=== PATIENT | female | born 1965 | race Two or more races ===

== ENCOUNTER 2019-04-04 16:39 | Emergency (ER) | payer OTHER ==
[~2019-04-04] VITALS: Ht 157.5 cm; Wt 54.4 kg
[2019-04-04] MEDS ORDERED: METOPROLOL TART50 M1 ORAL (17:08)
[2019-04-04 17:40] LABS: EOSINOPHILS % (AUTO) 0.7 % (0.0-3.0); HEMATOCRIT 40.9 % (37.0-47.0); HEMOGLOBIN 14.9 G/DL (12.0-16.0); LYMPHOCYTES % (AUTO) 25.8 % (20.0-45.0); MEAN CORPUSCULAR VOLUME 85 FL (80-99); MONOCYTES % (AUTO) 6.5 % (1.0-10.0); PLATELET COUNT 182 K/UL (150-450); RED BLOOD COUNT 4.82 M/UL (4.20-5.40); WHITE BLOOD COUNT 4.7 K/UL (4.8-10.8)
[2019-04-04 17:44] LABS: ANION GAP 7 mmol/L (5-15); BLOOD UREA NITROGEN 15 mg/dL (7-18); CARBON DIOXIDE 27 MMOL/L (21-32); CHLORIDE 108 MMOL/L (98-107); CREATININE 0.7 MG/DL (0.55-1.30); POTASSIUM 3.3 MMOL/L (3.5-5.1); SODIUM 142 MMOL/L (136-145)
[2019-04-04 17:48] VITALS: BP 129/61
[2019-04-04 17:49] LABS: ALANINE AMINOTRANSFERASE 22 U/L (12-78); ALKALINE PHOSPHATASE 83 U/L (46-116); ASPARTATE AMINO TRANSFERASE 20 U/L (15-37); BILIRUBIN,TOTAL 0.3 MG/DL (0.2-1.0)
--- NOTE | 2019-04-04 19:16 | Emergency Room Report ---
History of Present Illness General Chief Complaint: Chest Pain Source: Patient Present Illness HPI 53-year-old female who presents with chest pain. Patient symptoms started yesterday morning. Initial pain started lasted 1 to 2 hours. She had 4-6 episodes afterwards throughout yesterday afternoon evening and this morning. Patient states she has no pain at this time. She denies any past medical history other than hypertension which she takes medication for. She is non- smoker. She has no other known family risk factors. Allergies: Coded Allergies: PENICILLINS (Verified Allergy, Unknown, 04/04/19) Patient History Past Medical History: HTN Past Surgical History: none Now: No Nursing Documentation-PM Past Medical History: No History, Except For Hx Hypertension: Yes Review of Systems Constitutional: Denies: chills, fever Respiratory: Denies: cough, shortness of breath Cardiovascular: Reports: chest pain; Denies: palpitations Gastrointestinal: Denies: diarrhea, vomiting Genitourinary: Denies: hematuria, pain Musculoskeletal: Denies: joint swelling Skin: Denies: rash, lesions Neurological: Denies: headache, dizziness Physical Exam Vital Signs Date Time Temp Pulse Resp B/P (MAP) Pulse Ox O2 Delivery O2 Flow Rate FiO2 04/04/19 16:45 98.2 98 15 127/59 (81) 98 Room Air Sp02 EP Interpretation: reviewed General Appearance: well appearing, no apparent distress, non-toxic Head: normocephalic, atraumatic Eyes: bilateral eye normal inspection ENT: hearing grossly normal, EOM grossly intact, moist mucus membranes Neck: supple Respiratory: lungs clear, normal breath sounds, no respiratory distress, speaking full sentences Cardiovascular #1: regular rate, rhythm, normal capillary refill Cardiovascular #2: 2+ radial (R), 2+ radial (L) Gastrointestinal: soft, non-distended Rectal: deferred Musculoskeletal: moves extm spontaneously, no lower extremity edema Neurologic: grossly normal Psychiatric: mood/affect normal Skin: warm/dry, normal turgor Medical Decision Making Diagnostic Impression: Primary Impression: Chest pain ER Course 53-year-old female with chest pain. Found to have ST depressions on initial EKG. Troponin noted to be negative. Repeat EKG within normal limits. Given patient' s age and risk factors and EKG changes will admit for chest pain work-up. Laboratory Tests Test 04/04/19 17:30 White Blood Count 4.7 K/UL (4.8-10.8) L Red Blood Count 4.82 M/UL (4.20-5.40) Hemoglobin 14.9 G/DL (12.0-16.0) Hematocrit 40.9 % (37.0-47.0) Mean Corpuscular Volume 85 FL (80-99) Mean Corpuscular Hemoglobin 30.9 PG (27.0-31.0) Mean Corpuscular Hemoglobin Concent 36.4 G/DL (32.0-36.0) H Red Cell Distribution Width 10.0 % (11.6-14.8) L Platelet Count 182 K/UL (150-450) Mean Platelet Volume 7.2 FL (6.5-10.1) Neutrophils (%) (Auto) 66.0 % (45.0-75.0) Lymphocytes (%) (Auto) 25.8 % (20.0-45.0) Monocytes (%) (Auto) 6.5 % (1.0-10.0) Eosinophils (%) (Auto) 0.7 % (0.0-3.0) Basophils (%) (Auto) 1.0 % (0.0-2.0) Sodium Level 142 MMOL/L (136-145) Potassium Level 3.3 MMOL/L (3.5-5.1) L Chloride Level 108 MMOL/L (98-107) H Carbon Dioxide Level 27 MMOL/L (21-32) Anion Gap 7 mmol/L (5-15) Blood Urea Nitrogen 15 mg/dL (7-18) Creatinine 0.7 MG/DL (0.55-1.30) Estimate Glomerular Filtration Rate > 60 mL/min (>60) Glucose Level 120 MG/DL (74-106) H Calcium Level 9.0 MG/DL (8.5-10.1) Total Bilirubin 0.3 MG/DL (0.2-1.0) Aspartate Amino Transferase (AST) 20 U/L (15-37) Alanine Aminotransferase (ALT) 22 U/L (12-78) Alkaline Phosphatase 83 U/L (46-116) Troponin I 0.006 ng/mL (0.000-0.056) Total Protein 8.0 G/DL (6.4-8.2) Albumin 4.0 G/DL (3.4-5.0) Globulin 4.0 g/dL Albumin/Globulin Ratio 1.0 (1.0-2.7) EKG Diagnostic Results EKG Time: 16:51 EP Interpretation: Normal sinus rhythm ST depressions on inferior leads Rate: normal Rhythm: NSR ST Segments: no acute changes Rhythm Strip Diag. Results Rhythm Strip Time: 17:00 Rhythm: NSR, no PVC's, no ectopy Chest X-Ray Diagnostic Results Chest X-Ray Diagnostic Results : Chest X-Ray Ordered: Yes # of Views/Limited/Complete: 1 View Indication: Chest Pain EP Interpretation: Yes Impression: No acute disease Last Vital Signs Date Time Temp Pulse Resp B/P (MAP) Pulse Ox O2 Delivery O2 Flow Rate FiO2 04/04/19 21:29 98.2 57 12 131/70 97 Room Air Status: improved Reevaluation Impression Repeat EKG reviewed at 1918. Normal sinus rhythm rate of [address] changes consistent with ischemia Patient's care accepted by Dr. Schmidt at [facility] Disposition: XFER T-[facility] Condition: Stable Referrals: NON PHYSICIAN (PCP) Patient Instructions: Nonspecific Chest Pain Additional Instructions: Follow-up with your primary care doctor and manager strategic sourcing in 2 to 3 days Jean Cao M.D. Apr 04, 2019 19:16
[2019-04-04 19:36] VITALS: BP 132/80
[2019-04-04 20:07] LABS: APPEARANCE,URINE CLEAR; BILIRUBIN, URINE NEGATIVE (NEGATIVE); COLOR,URINE PALE YELLOW; GLUCOSE, URINE (UA) NEGATIVE (NEGATIVE); KETONES,URINE NEGATIVE (NEGATIVE); LEUKOCYTE ESTERASE ,URINE NEGATIVE (NEGATIVE); NITRITE,URINE NEGATIVE (NEGATIVE); PH,URINE 8 (4.5-8.0); PROTEIN,URINE NEGATIVE (NEGATIVE); UROBILINOGEN,URINE NORMAL MG/DL (0.0-1.0)
[2019-04-04 21:29] VITALS: BP 131/70
[2019-04-04 23:10] VITALS: BP 132/60
--- NOTE | 2019-04-06 18:03 | Diagnostic Imaging Report ---
Indication: Chest pain Technique: One view of the chest Comparison: none Findings: Lungs and pleural spaces are clear. Heart size is normal. Impression: No acute process
== END 2019-04-04 23:10 | disposition short-term general hospital (02) ==
LOC: EMR 18:05
DX: R07.9 Chest pain, unspecified (principal); Z88.0 Allergy status to penicillin; I10 Essential (primary) hypertension
CPT/HCPCS: 36415; 71045; 80053; 81003; 84484; 85025; 93005; 99284

== ENCOUNTER 2019-05-17 09:24 | Emergency (ER) | payer OTHER ==
[~2019-05-17] VITALS: Ht 162.6 cm; Wt 56.7 kg
[~2019-05-17 09:24] MED LIST: METOPROLOL TART50 M1 ORAL
[2019-05-17 09:34] VITALS: BP 151/79
--- NOTE | 2019-05-17 09:34 | NUR ---
ED Nurse Note: Pt walked in from home c/o left shouler/elbow pain x 15 days. Pt denies injury and has full range of motion. Respirations even and unlabored on room air. Vitals stable as documented.
--- NOTE | 2019-05-17 09:35 | NUR ---
ED Nurse Note:ED MD @ bedside
[2019-05-17] MEDS ORDERED: IBUPROFEN600 MG ORAL (09:37)
--- NOTE | 2019-05-17 09:40 | Emergency Room Report ---
History of Present Illness General Chief Complaint: Upper Extremity Injury Source: Patient Present Illness HPI Disclaimer: Please note that this report is being documented using wavecatchON technology. This can lead to erroneous entry secondary to incorrect interpretation by the dictating instrument. HPI: 53-year-old female presents for evaluation of left shoulder pain. Symptoms began 2 weeks ago. Denies any injury, twisting motion or prior surgery to that left shoulder. Has full range of motion is complaining of pain that is worse at night and relieved during the day. Has full use of the left upper extremity. Denies pain in the elbow or wrist. Denies any numbness, tingling or weakness. Has been using 1 tablet of 200 mg ibuprofen intermittently without significant improvement. PMH: Hypertension PSH: Denies Allergies: Penicillin Allergies: Coded Allergies: PENICILLINS (Verified Allergy, Unknown, 04/04/19) Patient History Last Menstrual Period: 2012 Nursing Documentation-PMH Past Medical History: No History, Except For Hx Hypertension: Yes Review of Systems All Other Systems: negative except mentioned in HPI Physical Exam Vital Signs Date Time Temp Pulse Resp B/P (MAP) Pulse Ox O2 Delivery O2 Flow Rate FiO2 05/17/19 09:27 97.7 63 16 151/79 (103) 98 Room Air General: Awake and alert, no acute distress HEENT: NC/AT. EOMI. Resp: Normal work of breathing Skin: Intact. No abrasions, laceration or rash over the exposed skin MSK: Normal tone and bulk. Moving all extremities. No obvious deformity. Able to abduct the left upper extremity past 220 degrees. Able to flex and extend at the left shoulder without difficulty. Able to flex and extend at the elbow as well as pronate and supinate without difficulty. Full range of motion in the wrist and hand. No tenderness, no deformity, no palpable step-off. Strength is 5/5 in all major muscle groups. Neuro: Awake and alert. Mentating appropriately. Sensation intact over the dermatomes of the left upper extremity. Medical Decision Making Diagnostic Impression: Primary Impression: Left shoulder pain ER Course 53-year-old female presents for evaluation of left shoulder pain at night over the past 2 weeks without injury. Pain is 0 currently and she has no symptoms at this time. No evidence of frozen shoulder, no history of trauma to suggest fracture or dislocation. She has full range of motion, strength and sensation. Do not believe she requires emergent labs or imaging at this time. Will treat with NSAIDs and follow-up with PMD and orthopedic surgery as needed. Discussed what full dose ibuprofen and Tylenol regimen should be as well as timing of these medications. She is well-appearing with no complaints otherwise. Stable for outpatient follow-up. Discussed reasons to return to the emergency department. Last Vital Signs Date Time Temp Pulse Resp B/P (MAP) Pulse Ox O2 Delivery O2 Flow Rate FiO2 05/17/19 09:27 97.7 63 16 151/79 (103) 98 Room Air Disposition: HOME, SELF-CARE Condition: Stable Scripts Ibuprofen* (MOTRIN*) 600 Mg Tablet 600 MG ORAL Q8H PRN for For Pain, #30 TAB 0 Refills Prov: Benji Cohn MD 05/17/19 [facility] 24 hour /7 days a week by Appointment Only [address] [facility] [address] [facility] [address] Patient Instructions: Shoulder Pain, [id number] Additional Instructions: Use the Tylenol and Motrin as prescribed particularly before bed as this is when your symptoms are worse. Follow-up with your doctor for reevaluation within 1 to 2 weeks. Your doctor may send you for further work-up and testing as needed. Return to the emergency department new or worsening symptoms. Benji Cohn MD May 17, 2019 09:40
--- NOTE | 2019-05-17 09:44 | NUR ---
ER DISCHARGE NOTE: Patient is cleared to be discharged per ERMD, pt is aox4, on room air, with stable vital signs as documented. pt was given dc and prescription instructions, pt was able to verbalize understanding, pt id band removed. pt is able to ambulate with steady gait. pt took all belongings.
[2019-05-17 09:46] VITALS: BP 148/82
== END 2019-05-17 09:50 | disposition home or self-care (01) ==
LOC: EMR 09:35
DX: M25.512 Pain in left shoulder (principal); I10 Essential (primary) hypertension; Z88.0 Allergy status to penicillin
CPT/HCPCS: 99282

== ENCOUNTER 2020-06-19 23:25 | Emergency (ER) | payer MEDICAID, OTHER ==
[~2020-06-19] VITALS: Ht 170.2 cm; Wt 68.0 kg
[~2020-06-19 23:25] MED LIST changes: +IBUPROFEN600 MG ORAL
[2020-06-19] MEDS ORDERED: fentaNYL 100 mcg/2 mL IV ONE (23:45)
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
[2020-06-20] MEDS ORDERED: Pantoprazole Inj IVP ONE
[2020-06-20 00:05] LABS: APPEARANCE,URINE CLEAR; BILIRUBIN, URINE NEGATIVE (NEGATIVE); COLOR,URINE PALE YELLOW; GLUCOSE, URINE (UA) NEGATIVE (NEGATIVE); KETONES,URINE NEGATIVE (NEGATIVE); NITRITE,URINE NEGATIVE (NEGATIVE); PH,URINE 7 (4.5-8.0); PROTEIN,URINE NEGATIVE (NEGATIVE); UROBILINOGEN,URINE NORMAL MG/DL (0.0-1.0)
[2020-06-20 00:07] LABS: BASOPHILS % (AUTO) 0.7 % (0.0-2.0); EOSINOPHILS % (AUTO) 0.4 % (0.0-3.0); HEMATOCRIT 40.5 % (37.0-47.0); HEMOGLOBIN 14.2 G/DL (12.0-16.0); LYMPHOCYTES % (AUTO) 16.8 % (20.0-45.0); MEAN CORPUSCULAR VOLUME 90 FL (80-99); MONOCYTES % (AUTO) 6.3 % (1.0-10.0); NEUTROPHILS % (AUTO) 75.8 % (45.0-75.0); PLATELET COUNT 177 K/UL (150-450); RED BLOOD COUNT 4.51 M/UL (4.20-5.40); RED CELL DISTRIBUTION WIDTH 12.3 % (11.6-14.8); WHITE BLOOD COUNT 7.5 K/UL (4.8-10.8)
[2020-06-20 00:14] LABS: LEUKOCYTE ESTERASE ,URINE NEGATIVE (NEGATIVE)
[2020-06-20 00:18] LABS: ANION GAP 7 mmol/L (5-15); BLOOD UREA NITROGEN 13 mg/dL (7-18); CALCIUM 9.4 MG/DL (8.5-10.1); CARBON DIOXIDE 28 MMOL/L (21-32); CHLORIDE 105 MMOL/L (98-107); CREATININE 0.9 MG/DL (0.55-1.30); POTASSIUM 3.5 MMOL/L (3.5-5.1); SODIUM 140 MMOL/L (136-145)
[2020-06-20 00:22] LABS: ALANINE AMINOTRANSFERASE 30 U/L (12-78); ALBUMIN 4.4 G/DL (3.4-5.0); ALBUMIN/GLOBULIN RATIO 1.2 (1.0-2.7); ALKALINE PHOSPHATASE 110 U/L (46-116); ASPARTATE AMINO TRANSFERASE 41 U/L (15-37); BILIRUBIN,TOTAL 0.3 MG/DL (0.2-1.0)
[2020-06-20] MEDS ORDERED: Aspirin Baby 81mg ORAL ONE (00:45)
[2020-06-20 00:51] VITALS: BP 148/74
--- NOTE | 2020-06-20 01:16 | Diagnostic Imaging Report ---
EXAM: CT Abdomen and Pelvis Without Intravenous Contrast CLINICAL HISTORY: PAIN TECHNIQUE: Axial computed tomography images of the abdomen and pelvis without intravenous contrast. CTDI is 3.8 mGy and DLP is 176.3 mGy-cm. One or more of the following dose reduction techniques were used: automated exposure control, adjustment of the mA and/or kV according to patient size, use of iterative reconstruction technique. COMPARISON: No relevant prior studies available. FINDINGS: ABDOMEN: Liver: Unremarkable. Gallbladder and bile ducts: Unremarkable. Pancreas: Unremarkable. Spleen: Unremarkable. Adrenals: Unremarkable. Kidneys and ureters: Unremarkable. No obstructing stones. No hydronephrosis. Stomach and bowel: Unremarkable. PELVIS: Appendix: Normal appendix. Bladder: Unremarkable. Reproductive: Unremarkable as visualized. ABDOMEN and PELVIS: Intraperitoneal space: Unremarkable. No free air. No significant fluid collection. Bones/joints: No acute fracture. Soft tissues: Unremarkable. Vasculature: Unremarkable. Lymph nodes: Unremarkable. IMPRESSION: No acute findings in the abdomen or pelvis.
[2020-06-20 01:30] VITALS: BP 148/74
[2020-06-20] MEDS ORDERED: ASPIRIN81 MG ORAL (01:35)
[2020-06-20] MEDS ORDERED: FAMOTIDINE20 MG ORAL (01:40)
--- NOTE | 2020-06-20 01:45 | NUR ---
AMA: SEE AMA FORM.
--- NOTE | 2020-06-20 01:47 | NUR ---
pt came in for complaints of abdominal pain and increased blood pressure, blood and urine specimen sent to lab, ct completed, recommendation to admit patient refused admission, signed AMA form, pt is aox4, on room air, with stable vital signs. pt was given prescription instructions, pt was able to verbalize understanding, pt id band and iv site removed without complications. pt is able to ambulate with steady gait. pt took all belongings.
== END 2020-06-20 01:45 | disposition left against medical advice (07) ==
LOC: EMR 23:48
DX: R10.13 Epigastric pain (principal); I10 Essential (primary) hypertension; M54.5 Low back pain; Z88.0 Allergy status to penicillin
CPT/HCPCS: 36415; 74176; 80053; 80307; 81003; 83690; 83735; 84484; 85025; 93005; 96360; J7030; Z7502; 99291